=== PATIENT | female | born 1945 | race Caucasian/White ===

== ENCOUNTER 2021-05-28 19:41 | Inpatient (IN) | payer MEDICARE, BC ==
[~2021-05-28] VITALS: Ht 157.5 cm; Wt 69.4 kg
[2021-05-28 20:00] VITALS: BP 128/59
--- NOTE | 2021-05-28 20:00 | NUR ---
GPS-FURNACE HELPER NOTES: ADMITTED THIS 76 Y/O, FEMALE, FROM [facility]. ADMITTED ON 5150 FOR GD. PER HOLD, PATIENT IS HAVING WORSENING PARANOIA, CONFUSION, PHYSICAL AGGRESSION AND AUDITORY AND VISUAL HALLUCINATIONS. SHE IS NOT EATING AND CANNOT VERBALIZE A VISIBLE PLAN OF SELF CARE AT THIS TIME. UPON FACE TO FACE ASSESSMENT, PATIENT IS A/OX1, CONFUSED, DISORIENTED, YELLING INTERMITTENTLY, COOPERATIVE. REORIENTATION PROVIDED. PT WAS ADVISED OF HER HOLD. PATIENT IS UNDER THE PSYCH CARE OF DR. SCHROEDER AND THE MEDICAL CARE OF DR. MIRANDA. PT HANDBOOK GIVEN WITH PATIENT'S RIGHTS AND GUIDE TO PRESCRIPTIONS. PT BELONGINGS WERE INVENTORIED AND CHECKED FOR CONTRABAND. SKIN ASSESSMENT DONE. SAFETY PRECAUTIONS IN PLACE. WILL CONTINUE TO MONITOR Q15MIN ROUNDS FOR SAFETY AND BEHAVIOR.
--- NOTE | 2021-05-28 20:30 | NUR ---
RN-NOTES DR. SCHROEDER (PSYCHIATRIST) MADE AWARE OF PATIENT ADMISSION WITH STANDING ORDERS.NOTED AND CARRIED OUT,ALSO DR. MIRANDA (B2B OUTSIDE SALES REPRESENTATIVE) WAS MADE AWARE. PATIENT'S SPOUSE THEODORE PERES [phone] WAS MADE AWARE .
[2021-05-28] MEDS ORDERED: ATOR40TA PO (20:40)
[2021-05-28] MEDS ORDERED: POLY17PO4 PO (20:40)
[2021-05-28] MEDS ORDERED: PANT40TA49 PO (20:40)
[2021-05-28] MEDS ORDERED: LOSA50TA39 PO (20:40)
[2021-05-28] MEDS ORDERED: ENOX40DI SUBCUT (20:40)
[2021-05-28] MEDS ORDERED: OLAN5TAB3 PO ×2 (20:40)
[2021-05-28] MEDS ORDERED: ASPI-1169 PO (20:40)
[2021-05-28] MEDS ORDERED: ACET-3117 PO (20:40)
[2021-05-28] MEDS ORDERED: LORA-259 PO (20:40)
[2021-05-28] MEDS ORDERED: MIRT-90 PO (20:40)
[2021-05-28] MEDS ORDERED: OLANZAPINE IM (20:40)
[2021-05-28] MEDS ORDERED: DONE10TA44 PO (20:40)
[2021-05-28] MEDS ORDERED: TRAZ-182 PO (20:40)
[2021-05-28] MEDS ORDERED: SENN-18 PO (20:40)
[2021-05-28] MEDS ORDERED: FOLIC ACID PO (20:40)
[2021-05-28] MEDS ORDERED: MAG HYDROX/AL HYDROX/SIMETH 30 ML UDC PO PRN (21:00)
[2021-05-28] MEDS ORDERED: BLOOD SUGAR DIAGNOSTIC 1 EACH STRIP IN ONE (21:00)
[2021-05-28] MEDS ORDERED: MAGNESIUM HYDROXIDE 30 ML UDC PO PRN (21:00)
--- NOTE | 2021-05-28 21:00 | NUR ---
GPS-RN NOTES: DR. MIRANDA NOTIFIED REGARDING PT'S ADMISSION AND MEDICATIONS NEEDS TO BE RECONCILED.
[2021-05-28] MEDS: LORAZEPAM 0.5 MG TABLET PO PRN (23:26)
--- NOTE | 2021-05-28 23:26 | NUR ---
GPS-RN NOTES: PATIENT IS ANXIOUS AND RESTLESS. ADMINISTERED ATIVAN 0.5MG PO ORDERED BUT PATIENT SPIT OUT MEDICATION. PATIENT REMAINS CONFUSED. WILL CONTINUE TO MONITOR FOR SAFETY.
[2021-05-29] MEDS: TEMAZEPAM 7.5 MG CAPSULE PO PRN ×2 (00:32→23:31)
--- NOTE | 2021-05-29 00:32 | NUR ---
GPS-RN NOTES: INSOMNIA PATIENT IS UNABLE TO SLEEP. PRN RESTORIL 7.5MG PO GIVEN ORDERED. WILL CONTINUE TO MONITOR.
[2021-05-29 08:00] VITALS: BP 131/65
[2021-05-29 08:41] LABS: CHOLESTEROL 150 mg/dL (<200); HDL CHOLESTEROL 50 mg/dL (40-60); LDL 74 mg/dL (0-99); TRIGLYCERIDES 81 mg/dL (30-150)
[2021-05-29 08:42] LABS: ALBUMIN 3.8 g/dL (3.4-5.0); BILIRUBIN,TOTAL 0.6 mg/dL (0.2-1.0); CALCIUM, SERUM 9.2 mg/dL (8.5-10.1); POTASSIUM 4.2 mmol/L (3.5-5.1); TOTAL PROTEIN, SERUM 7.3 g/dL (6.4-8.2)
[2021-05-29] MEDS ORDERED: HOME MED MISCELLANEOUS XX SCH (10:00)
[2021-05-29 10:14] LABS: BASOPHILS # (AUTO) 0.2 K/uL (0.0-0.2); BASOPHILS % (AUTO) 1.3 % (0.0-2.0); EOSINOPHILS % (AUTO) 0.6 % (0.0-6.0); HEMATOCRIT 33 % (33-45); HEMOGLOBIN 10.9 g/dL (11.5-14.8); LYMPHOCYTES # (AUTO) 1.9 K/uL (0.8-4.8); LYMPHOCYTES % (AUTO) 12.6 % (20.0-44.0); MEAN CORPUSCULAR HGB CONC 34 g/dl (31.0-36.0); MEAN CORPUSCULAR VOLUME 90 fL (82-100); MONOCYTES # (AUTO) 1.3 K/uL (0.1-1.30); MONOCYTES % (AUTO) 8.6 % (2.0-12.0); NEUTROPHILS # (AUTO) 11.5 K/uL (1.8-8.9); NEUTROPHILS % (AUTO) 76.9 % (43.0-81.0); PLATELET COUNT (AUTO) 540 K/uL (150-450); RED BLOOD CELL COUNT(AUTO) 3.62 MIL/uL (4.0-5.2)
[2021-05-29] MEDS: ENOXAPARIN SODIUM 40 MG/0.4 ML DISP.SYRIN SQ SCH (10:30)
[2021-05-29] MEDS: LORAZEPAM 0.5 MG TABLET PO PRN (10:31)
--- NOTE | 2021-05-29 11:51 | NUR ---
gps administrative sales assistant: notes pt refused lovenox, pt gets easily agitated. reality orientation provided prn. will continue to monitor.
--- NOTE | 2021-05-29 15:44 | NUR ---
INITIAL ASSESSMENT: Social Service initial assessment completed today.
[2021-05-29 16:00] VITALS: BP 123/58
[2021-05-29] MEDS: OLANZAPINE 5 MG TABLET PO SCH (16:14)
[2021-05-29] MEDS: DIVALPROEX SODIUM 125 MG CAP.SPRINK PO SCH (16:14)
[2021-05-29 19:57] VITALS: BP 121/52
[2021-05-29 20:25] VITALS: BP 121/52
[2021-05-29] MEDS: SENNOSIDES 8.6 MG TABLET PO SCH (21:54)
[2021-05-29] MEDS: DONEPEZIL 5 MG TABLET PO SCH (21:54)
[2021-05-29] MEDS: MIRTAZAPINE 15 MG TABLET PO SCH (21:54)
--- NOTE | 2021-05-29 23:34 | NUR ---
RN NOTE: INSOMNIA PATIENT IS UNABLE TO SLEEP, PRN RESTORIL 7.5 MG 1 CAP PO ADMINISTERED. WILL CONTINUE TO MONITOR.
--- NOTE | 2021-05-29 23:35 | NUR ---
RN NOTE PATIENT WAS ASSISTED TO BED BUT PATIENT REFUSED TO STAY IN BED & GOT OUT OF BED, UNSTEADY & UNCOOPERATIVE AT THIS TIME. FALL RISK, ASSISTED PATIENT TO VICTOR M CHAIR FOR SAFETY. WILL CONTINUE TO MONITOR.
[2021-05-30] MEDS: LORAZEPAM 0.5 MG TABLET PO PRN ×3 (04:45→21:05)
--- NOTE | 2021-05-30 04:46 | NUR ---
RN NOTE: ANXIETY PATIENT IS VERY ANXIOUS, LOUD, RESTLESS, YELLING, PARANOID. PRN ATIVAN 0.5 MG 1 TAB PO ADMINISTERED. WILL CONTINUE TO MONITOR.
--- NOTE | 2021-05-30 05:57 | NUR ---
RN NOTE URINE SPECIMEN COLLECTED BY RESPIRATORY PHYSICIAN.
[2021-05-30 08:00] VITALS: BP 111/85
[2021-05-30 08:18] LABS: BILIRUBIN,URINE NEGATIVE (NEGATIVE); COLOR,URINE YELLOW (YELLOW); LEUKOCYTE ESTERASE ,URINE SMALL (NEGATIVE); NITRITE, URINE POSITIVE (NEGATIVE); PROTEIN,URINE NEGATIVE (NEGATIVE); UGLUCOSE NEGATIVE (NEGATIVE); UROBILINOGEN,URINE 0.2 EU/dL (0.2)
[2021-05-30] MEDS: DIVALPROEX SODIUM 125 MG CAP.SPRINK PO SCH ×3 (08:19→16:21)
[2021-05-30] MEDS: ASPIRIN 81 MG TAB.CHEW PO SCH (08:19)
[2021-05-30] MEDS: ATORVASTATIN 40 MG TABLET PO SCH (08:20)
[2021-05-30] MEDS: OLANZAPINE 5 MG TABLET PO SCH ×2 (08:20→16:21)
[2021-05-30] MEDS: LOSARTAN POTASSIUM 50 MG TABLET PO SCH (08:20)
[2021-05-30] MEDS: FOLIC ACID 1 MG TABLET PO SCH (08:20)
[2021-05-30] MEDS: PANTOPRAZOLE 40 MG TABLET.DR PO SCH (08:20)
[2021-05-30 08:26] LABS: BACTERIA,URINE Few /HPF (None Seen); RBC,URINE NONE SEEN /HPF (0-2); SQUAMOUS EPITHELIAL CELL,UR Few /HPF (None Seen); URINE AMORPHOUS URATE Many /HPF (None Seen)
[2021-05-30] MEDS: ENOXAPARIN SODIUM 40 MG/0.4 ML DISP.SYRIN SQ SCH (09:18)
--- NOTE | 2021-05-30 13:04 | NUR ---
RN-CO: ATIVAN GIVEN FOR RESTLESSNESS.
[2021-05-30] MEDS: LEVOFLOXACIN (250MG) 250 MG TABLET PO SCH (15:11)
[2021-05-30 16:00] VITALS: BP 132/58
[2021-05-30 20:25] VITALS: BP 105/42
[2021-05-30 21:00] VITALS: BP 108/55
--- NOTE | 2021-05-30 21:13 | NUR ---
RN NOTE: ANXIETY PATIENT IS NOTED TO BE VERY ANXIOUS, AGITATED, LOUD, HYPERVERBAL, RESTLESS, BANGING ON VICTOR M CHAIR. PRN ATIVAN 0.5 MG 1 TAB PO ADMINISTERED.
[2021-05-30] MEDS: MIRTAZAPINE 15 MG TABLET PO SCH (22:05)
[2021-05-30] MEDS: DONEPEZIL 5 MG TABLET PO SCH (22:05)
[2021-05-30] MEDS: SENNOSIDES 8.6 MG TABLET PO SCH (22:05)
[2021-05-31] MEDS: TEMAZEPAM 7.5 MG CAPSULE PO PRN (00:27)
--- NOTE | 2021-05-31 00:29 | NUR ---
RN NOTE: INSOMNIA PATIENT IS UNABLE TO SLEEP, ANXIOUS, AGITATED. PRN RESTORIL 7.5 MG 1 CAP PO ADMINISTERED. WILL CONTINUE TO MONITOR.
[2021-05-31] MEDS: LORAZEPAM 0.5 MG TABLET PO PRN ×3 (04:57→19:52)
--- NOTE | 2021-05-31 04:59 | NUR ---
RN NOTE: ANXIETY PATIENT IS NOTED TO BE VERY ANXIOUS, RESTLESS, YELLING, SCREAMING, AGITATED, LOUD, HYPERVERBAL, RESTLESS, BANGING ON VICTOR M CHAIR. PRN ATIVAN 0.5 MG 1 TAB PO ADMINISTERED.
[2021-05-31] MEDS: ACETAMINOPHEN 325 MG TABLET PO PRN ×2 (05:31→21:18)
--- NOTE | 2021-05-31 05:32 | NUR ---
RN NOTE: PAIN PATIENT C/O BACK PAIN, UNABLE TO SCALE DUE TO CONFUSION, PRN TYLENOL 650 MG PO ADMINISTERED.
[2021-05-31 08:00] VITALS: BP 115/80
[2021-05-31] MEDS: ENOXAPARIN SODIUM 40 MG/0.4 ML DISP.SYRIN SQ SCH (08:27)
[2021-05-31] MEDS: FOLIC ACID 1 MG TABLET PO SCH (08:28)
[2021-05-31] MEDS: DIVALPROEX SODIUM 125 MG CAP.SPRINK PO SCH ×3 (08:28→16:45)
[2021-05-31] MEDS: PANTOPRAZOLE 40 MG TABLET.DR PO SCH (08:28)
[2021-05-31] MEDS: OLANZAPINE 5 MG TABLET PO SCH ×2 (08:28→16:46)
[2021-05-31] MEDS: ATORVASTATIN 40 MG TABLET PO SCH (08:28)
[2021-05-31] MEDS: ASPIRIN 81 MG TAB.CHEW PO SCH (08:28)
[2021-05-31] MEDS: LOSARTAN POTASSIUM 50 MG TABLET PO SCH (08:30)
--- NOTE | 2021-05-31 09:25 | NUR ---
GPS RN NOTE: NOTED ON HER LEFT HAND ABRASION NP. DANGELO NOTIFIED WOUND CONSULT ORDERED
--- NOTE | 2021-05-31 13:05 | NUR ---
RN NOTE: ANXIETY PATIENT VERY ANXIOUS, RESTLESS, YELLING, PRN ATIVAN 0.5 MG 1 TAB PO ADMINISTERED.
[2021-05-31] MEDS: LEVOFLOXACIN (250MG) 250 MG TABLET PO SCH (14:51)
[2021-05-31 16:00] VITALS: BP 115/81
--- NOTE | 2021-05-31 19:53 | NUR ---
RN NOTE: ANXIETY PATIENT IS NOTED TO BE VERY ANXIOUS, AGITATED, LOUD, HYPERVERBAL, RESTLESS, PRN ATIVAN 0.5 MG 1 TAB PO ADMINISTERED. VITALS WNL. WILL CONTINUE TO MONITOR.
[2021-05-31 20:00] VITALS: BP 130/80
[2021-05-31 20:06] VITALS: BP 130/80
--- NOTE | 2021-05-31 21:19 | NUR ---
RN NOTE: PAIN PATIENT C/O GENERALIZED BODY PAIN, UNABLE TO SCALE DUE TO CONFUSION, PRN TYLENOL 650 MG PO ADMINISTERED. WILL CONTINUE TO MONITOR.
[2021-05-31] MEDS: MIRTAZAPINE 15 MG TABLET PO SCH (22:04)
[2021-05-31] MEDS: SENNOSIDES 8.6 MG TABLET PO SCH (22:04)
[2021-05-31] MEDS: DONEPEZIL 5 MG TABLET PO SCH (22:04)
[2021-06-01] MEDS: TEMAZEPAM 7.5 MG CAPSULE PO PRN ×2 (01:56→21:45)
--- NOTE | 2021-06-01 01:58 | NUR ---
RN NOTE: INSOMNIA PATIENT IS UNABLE TO SLEEP, ANXIOUS, AGITATED. PRN RESTORIL 7.5 MG 1 CAP PO ADMINISTERED. WILL CONTINUE TO MONITOR.
[2021-06-01] MEDS: Z GUARD REMEDY 4 OZ OINT TP PRN (03:10)
--- NOTE | 2021-06-01 06:53 | NUR ---
RN NOTE PATIENT IS SLEEPING IN BED AT THIS TIME.
[2021-06-01 08:00] VITALS: BP 115/57
[2021-06-01] MEDS: DIVALPROEX SODIUM 125 MG CAP.SPRINK PO SCH ×3 (08:59→16:06)
[2021-06-01] MEDS: OLANZAPINE 5 MG TABLET PO SCH ×2 (08:59→16:06)
[2021-06-01] MEDS: PANTOPRAZOLE 40 MG TABLET.DR PO SCH (08:59)
[2021-06-01] MEDS: LOSARTAN POTASSIUM 50 MG TABLET PO SCH (09:00)
[2021-06-01] MEDS: ASPIRIN 81 MG TAB.CHEW PO SCH (09:00)
[2021-06-01] MEDS: ENOXAPARIN SODIUM 40 MG/0.4 ML DISP.SYRIN SQ SCH (09:00)
[2021-06-01] MEDS: ATORVASTATIN 40 MG TABLET PO SCH (09:00)
[2021-06-01] MEDS: FOLIC ACID 1 MG TABLET PO SCH (09:00)
[2021-06-01] MEDS: Z GUARD REMEDY 2 OZ OINT TP SCH (09:01)
[2021-06-01] MEDS: ACETAMINOPHEN 325 MG TABLET PO PRN ×2 (12:04→20:36)
[2021-06-01] MEDS: LEVOFLOXACIN (250MG) 250 MG TABLET PO SCH (14:29)
[2021-06-01 16:00] VITALS: BP 138/96
[2021-06-01 20:00] VITALS: BP 136/69
--- NOTE | 2021-06-01 20:37 | NUR ---
RN NOTES PT COMPLAINED OF LOWERBACK PAIN; PRN MEDICATION GIVEN .
[2021-06-01] MEDS: MIRTAZAPINE 15 MG TABLET PO SCH (21:19)
[2021-06-01] MEDS: DONEPEZIL 5 MG TABLET PO SCH (21:20)
[2021-06-01] MEDS: SENNOSIDES 8.6 MG TABLET PO SCH (21:20)
--- NOTE | 2021-06-01 21:45 | NUR ---
GPS-RN NOTES: INSOMNIA PATIENT C/O UNABLE TO SLEEP. PRN RESTORIL 7.5MG PO GIVEN ORDERED. WILL CONTINUE TO MONITOR.
[2021-06-02] MEDS: LORAZEPAM 0.5 MG TABLET PO PRN ×3 (00:13→16:07)
--- NOTE | 2021-06-02 00:13 | NUR ---
GPS NOTE - Anxiety Patient is anxious and restless. Patient wanted to get out of bed. PRN Ativan 0.5 mg given. Will continue to monitor for patient safety.
[2021-06-02 08:00] VITALS: BP 140/69
[2021-06-02] MEDS: ENOXAPARIN SODIUM 40 MG/0.4 ML DISP.SYRIN SQ SCH (08:05)
[2021-06-02] MEDS: LOSARTAN POTASSIUM 50 MG TABLET PO SCH (08:06)
[2021-06-02] MEDS: ASPIRIN 81 MG TAB.CHEW PO SCH (08:06)
[2021-06-02] MEDS: OLANZAPINE 5 MG TABLET PO SCH ×2 (08:06→16:07)
[2021-06-02] MEDS: ACETAMINOPHEN 325 MG TABLET PO PRN ×2 (08:06→21:40)
[2021-06-02] MEDS: PANTOPRAZOLE 40 MG TABLET.DR PO SCH (08:06)
--- NOTE | 2021-06-02 08:06 | NUR ---
RN NOTE: ANXIETY PT EXHIBITING INCREASED ANXIETY. YELLING OUT FOR THEODORE. PT IS CONFUSED AND DISORIENTED. GOING INTO OTHER PATIENT'S ROOMS. MEDICATEED WITH ATIVAN PO PRN. WILL CONT TO MONITOR EFFECTIVENESS OF PRN M EDICATIONS
[2021-06-02] MEDS: Z GUARD REMEDY 2 OZ OINT TP SCH (08:07)
[2021-06-02] MEDS: ATORVASTATIN 40 MG TABLET PO SCH (08:07)
[2021-06-02] MEDS: FOLIC ACID 1 MG TABLET PO SCH (08:07)
[2021-06-02] MEDS: DIVALPROEX SODIUM 125 MG CAP.SPRINK PO SCH ×2 (09:23→16:07)
--- NOTE | 2021-06-02 10:34 | NUR ---
SNF Referral: GUERO faxed clinicals to [facility] [phone] [place] [address]] for SNF placement. Addendum: 06/02/21 at 1037 by ALHAJI JACK
--- NOTE | 2021-06-02 10:49 | NUR ---
SNF Referral: GUERO faxed clinicals to [facility] [[address] [place] [address] TEL: FAX: [phone]] for SNF placement.
--- NOTE | 2021-06-02 11:18 | NUR ---
WOUND CARE CONSULT: PT PRESENTS WITH SKIN IRRITATION TO INNER BUTTOCKS. RECOMMENDATIONS MADE FOR SKIN CARE AND PROTECTION. DISCUSSED WITH NURSING STAFF. IN AGREEMENT WITH PLAN OF CARE. Addendum: 06/02/21 at 1119 by RACHELLE COSBY WNDNU Amended: Links added.
[2021-06-02] MEDS: LEVOFLOXACIN (250MG) 250 MG TABLET PO SCH (13:18)
[2021-06-02 16:00] VITALS: BP 138/57
--- NOTE | 2021-06-02 16:08 | NUR ---
RN NOTE: ANXIETY PT YELLING, "HELP, HELP". UNABLE TO BE REORIENTED AND REASSURED. MEDICATED WITH ATIVn 0.5 MG PO PRN.
--- NOTE | 2021-06-02 19:00 | NUR ---
start of my shift received Jarrod PERES ambulating in the corridor flat affect on her face aimlessly ambulating. Ambulated her to her room but first to the bathroom. She is cooperative and follows directions with assist. Noted med swallowed w/o problems if crushed and given with applesauce asp precautions. Her called he is very concerned about her and requested the MD Smith call him anytime : THEODORE JA [phone] will leave a note on the MD'S message board and tell charge nurse
[2021-06-02 20:00] VITALS: BP 123/66
[2021-06-02] MEDS: DONEPEZIL 5 MG TABLET PO SCH (21:38)
[2021-06-02] MEDS: MIRTAZAPINE 15 MG TABLET PO SCH (21:39)
[2021-06-02] MEDS: SENNOSIDES 8.6 MG TABLET PO SCH (21:40)
[2021-06-02] MEDS: TEMAZEPAM 7.5 MG CAPSULE PO PRN (21:41)
--- NOTE | 2021-06-03 04:36 | NUR ---
noted asleep since 10 pm skin warm and dry. resp even and unlabored. appears comfortable was up once to go to the bathroom assisted tot he bathroom bed alarm on for safety
[2021-06-03 08:00] VITALS: BP 101/52
[2021-06-03] MEDS: FOLIC ACID 1 MG TABLET PO SCH (08:31)
[2021-06-03] MEDS: ASPIRIN 81 MG TAB.CHEW PO SCH (08:31)
[2021-06-03] MEDS: PANTOPRAZOLE 40 MG TABLET.DR PO SCH (08:31)
[2021-06-03] MEDS: OLANZAPINE 5 MG TABLET PO SCH ×2 (08:31→16:45)
[2021-06-03] MEDS: LOSARTAN POTASSIUM 50 MG TABLET PO SCH (08:32)
[2021-06-03] MEDS: DIVALPROEX SODIUM 125 MG CAP.SPRINK PO SCH ×2 (08:33→16:45)
[2021-06-03] MEDS: ENOXAPARIN SODIUM 40 MG/0.4 ML DISP.SYRIN SQ SCH (08:34)
[2021-06-03] MEDS: ATORVASTATIN 40 MG TABLET PO SCH (08:35)
[2021-06-03] MEDS: ACETAMINOPHEN 325 MG TABLET PO PRN (09:35)
[2021-06-03] MEDS: Z GUARD REMEDY 2 OZ OINT TP SCH (09:41)
[2021-06-03] MEDS: LEVOFLOXACIN (250MG) 250 MG TABLET PO SCH (14:08)
[2021-06-03 16:00] VITALS: BP 133/69
[2021-06-03 19:55] VITALS: BP 115/65
[2021-06-03] MEDS: SENNOSIDES 8.6 MG TABLET PO SCH (21:33)
[2021-06-03] MEDS: DONEPEZIL 5 MG TABLET PO SCH (21:34)
[2021-06-03] MEDS: MIRTAZAPINE 15 MG TABLET PO SCH (21:34)
[2021-06-03] MEDS: TEMAZEPAM 7.5 MG CAPSULE PO PRN (21:34)
[2021-06-04 08:00] VITALS: BP 141/68
[2021-06-04] MEDS: ASPIRIN 81 MG TAB.CHEW PO SCH (08:38)
[2021-06-04] MEDS: ATORVASTATIN 40 MG TABLET PO SCH (08:38)
[2021-06-04] MEDS: DIVALPROEX SODIUM 125 MG CAP.SPRINK PO SCH ×2 (08:38→16:36)
[2021-06-04] MEDS: FOLIC ACID 1 MG TABLET PO SCH (08:39)
[2021-06-04] MEDS: PANTOPRAZOLE 40 MG TABLET.DR PO SCH (08:39)
[2021-06-04] MEDS: OLANZAPINE 5 MG TABLET PO SCH ×2 (08:39→16:36)
[2021-06-04] MEDS: ENOXAPARIN SODIUM 40 MG/0.4 ML DISP.SYRIN SQ SCH (08:42)
[2021-06-04] MEDS: LOSARTAN POTASSIUM 50 MG TABLET PO SCH (08:43)
[2021-06-04] MEDS: Z GUARD REMEDY 2 OZ OINT TP SCH (09:28)
--- NOTE | 2021-06-04 09:50 | NUR ---
D/C Planning: GUERO called [facility] [[address] [place] [address] TEL: FAX: [phone]] and spoke to admissions dept. who stated that they will review the clinicals and get back to SW.
--- NOTE | 2021-06-04 09:55 | NUR ---
D/C planning: GUERO faxed clinicals to [facility] [ [address] [place] [address]] and left voicemail to admissions department requested update of referral. Addendum: 06/04/21 at [address]I JACK [facility]
--- NOTE | 2021-06-04 10:10 | NUR ---
SNF Referral: GUERO faxed clinicals to [facility] FAX:[phone] TEL:[phone]
--- NOTE | 2021-06-04 11:07 | NUR ---
Social Work Family Contact Spoke with patient's who said he was upset as he had not had any contact from Dr Smith. Spoke with Dr Smith who agreed to call patient's . wanted information regarding patient's condition and to discuss a realistic discharge plan.
--- NOTE | 2021-06-04 11:44 | NUR ---
D/C Planning: SW received call from Alan at [facility] [[address] [address] TEL: FAX: [phone]] statign they cannot accept this pt. as they feel she needs higher level of care. Noted.
--- NOTE | 2021-06-04 13:05 | NUR ---
Probable cause hearing: Pt.'s 5250 hold was upheld on the grounds of Gravely Disabled.
[2021-06-04 16:00] VITALS: BP_SYST 132; BP_SYST 137; BP_DIAS 67; BP_DIAS 69
--- NOTE | 2021-06-04 19:43 | NUR ---
RN OPENING NOTES: RECEIVED PATIENT AWAKE IN BED, AMBULATORY, NO COMPLAIN OF PAIN AND DISCOMFORT AT THIS TIME, NO CHANGES IN BEHAVIOR OR ANY AGITATION OBSERVED, PATIENT KEPT CLEAN AND DRY, BED IN LOW POSITION, WILL CONTINUE TO MONITOR.
[2021-06-04 20:37] VITALS: BP 120/68
[2021-06-04] MEDS: MIRTAZAPINE 15 MG TABLET PO SCH (21:57)
[2021-06-04] MEDS: DONEPEZIL 5 MG TABLET PO SCH (21:57)
[2021-06-04] MEDS: SENNOSIDES 8.6 MG TABLET PO SCH (21:57)
[2021-06-05] MEDS: TEMAZEPAM 7.5 MG CAPSULE PO PRN (00:37)
[2021-06-05] MEDS: ACETAMINOPHEN 325 MG TABLET PO PRN (01:28)
[2021-06-05] MEDS: LORAZEPAM 0.5 MG TABLET PO PRN (02:56)
[2021-06-05 07:47] LABS: BASOPHILS # (AUTO) 0.1 K/uL (0.0-0.2); BASOPHILS % (AUTO) 0.6 % (0.0-2.0); EOSINOPHILS % (AUTO) 0.5 % (0.0-6.0); HEMATOCRIT 32 % (33-45); HEMOGLOBIN 10.5 g/dL (11.5-14.8); LYMPHOCYTES % (AUTO) 6.7 % (20.0-44.0); MEAN CORPUSCULAR HGB CONC 33 g/dl (31.0-36.0); MEAN CORPUSCULAR VOLUME 90 fL (82-100); MONOCYTES # (AUTO) 1.6 K/uL (0.1-1.30); MONOCYTES % (AUTO) 10.3 % (2.0-12.0); NEUTROPHILS # (AUTO) 12.7 K/uL (1.8-8.9); NEUTROPHILS % (AUTO) 81.9 % (43.0-81.0); PLATELET COUNT (AUTO) 523 K/uL (150-450); RED BLOOD CELL COUNT(AUTO) 3.53 MIL/uL (4.0-5.2); WHITE BLOOD COUNT (AUTO) 15.6 K/uL (4.3-11.0)
[2021-06-05 08:00] VITALS: BP 121/78
[2021-06-05 08:02] LABS: CALCIUM, SERUM 9.1 mg/dL (8.5-10.1); CREATININE 0.9 mg/dL (0.6-1.3); POTASSIUM 3.7 mmol/L (3.5-5.1)
[2021-06-05] MEDS: ATORVASTATIN 40 MG TABLET PO SCH (09:03)
[2021-06-05] MEDS: PANTOPRAZOLE 40 MG TABLET.DR PO SCH (09:03)
[2021-06-05] MEDS: OLANZAPINE 5 MG TABLET PO SCH ×2 (09:03→16:09)
[2021-06-05] MEDS: FOLIC ACID 1 MG TABLET PO SCH (09:03)
[2021-06-05] MEDS: DIVALPROEX SODIUM 125 MG CAP.SPRINK PO SCH ×2 (09:03→16:09)
[2021-06-05] MEDS: Z GUARD REMEDY 2 OZ OINT TP SCH (09:03)
[2021-06-05] MEDS: LOSARTAN POTASSIUM 50 MG TABLET PO SCH (09:04)
[2021-06-05] MEDS: ASPIRIN 81 MG TAB.CHEW PO SCH (09:04)
[2021-06-05] MEDS: ENOXAPARIN SODIUM 40 MG/0.4 ML DISP.SYRIN SQ SCH (09:05)
[2021-06-05 16:00] VITALS: BP 118/60
[2021-06-05 20:52] VITALS: BP 101/55
[2021-06-05] MEDS: DONEPEZIL 5 MG TABLET PO SCH (21:28)
[2021-06-05] MEDS: MIRTAZAPINE 15 MG TABLET PO SCH (21:29)
[2021-06-05] MEDS: SENNOSIDES 8.6 MG TABLET PO SCH (21:29)
[2021-06-05 21:40] VITALS: BP 118/68
[2021-06-06 08:00] VITALS: BP 132/77
[2021-06-06] MEDS: OLANZAPINE 5 MG TABLET PO SCH ×2 (08:16→17:18)
[2021-06-06] MEDS: FOLIC ACID 1 MG TABLET PO SCH (08:16)
[2021-06-06] MEDS: ASPIRIN 81 MG TAB.CHEW PO SCH (08:16)
[2021-06-06] MEDS: ATORVASTATIN 40 MG TABLET PO SCH (08:16)
[2021-06-06] MEDS: PANTOPRAZOLE 40 MG TABLET.DR PO SCH (08:16)
[2021-06-06] MEDS: LOSARTAN POTASSIUM 50 MG TABLET PO SCH (08:16)
[2021-06-06] MEDS: DIVALPROEX SODIUM 125 MG CAP.SPRINK PO SCH ×2 (08:17→17:18)
[2021-06-06] MEDS: ENOXAPARIN SODIUM 40 MG/0.4 ML DISP.SYRIN SQ SCH (08:19)
[2021-06-06] MEDS: Z GUARD REMEDY 2 OZ OINT TP SCH (08:20)
--- NOTE | 2021-06-06 12:15 | NUR ---
GPS/RN PT REFUSED ACCUCHECK OFFERED X3
[2021-06-06 16:00] VITALS: BP 132/92
[2021-06-06 20:06] VITALS: BP 121/67
[2021-06-06] MEDS: SENNOSIDES 8.6 MG TABLET PO SCH (21:16)
[2021-06-06] MEDS: MIRTAZAPINE 15 MG TABLET PO SCH (21:17)
[2021-06-06] MEDS: DONEPEZIL 5 MG TABLET PO SCH (21:17)
[2021-06-06] MEDS: Z GUARD REMEDY 4 OZ OINT TP PRN (21:20)
[2021-06-07] MEDS: LORAZEPAM 0.5 MG TABLET PO PRN (02:27)
--- NOTE | 2021-06-07 02:27 | NUR ---
RN NOTES : ANXIETY PT. NOTED VERY ANXIOUS RESTLESS, PARANOID, NON REDIIRECTABLE ATIVAN 0.5 MG PO PRN GIVEN PER PT. REQUEST , WILL CONTINUE TO MONITOR.
[2021-06-07 08:00] VITALS: BP 114/53
[2021-06-07 08:41] LABS: BASOPHILS # (AUTO) 0.1 K/uL (0.0-0.2); BASOPHILS % (AUTO) 0.8 % (0.0-2.0); EOSINOPHILS % (AUTO) 0.2 % (0.0-6.0); HEMATOCRIT 30 % (33-45); HEMOGLOBIN 9.9 g/dL (11.5-14.8); LYMPHOCYTES # (AUTO) 0.8 K/uL (0.8-4.8); LYMPHOCYTES % (AUTO) 6.5 % (20.0-44.0); MEAN CORPUSCULAR HGB CONC 33 g/dl (31.0-36.0); MEAN CORPUSCULAR VOLUME 89 fL (82-100); MONOCYTES # (AUTO) 1.2 K/uL (0.1-1.30); MONOCYTES % (AUTO) 9.3 % (2.0-12.0); NEUTROPHILS # (AUTO) 10.7 K/uL (1.8-8.9); NEUTROPHILS % (AUTO) 83.2 % (43.0-81.0); PLATELET COUNT (AUTO) 389 K/uL (150-450); RED BLOOD CELL COUNT(AUTO) 3.37 MIL/uL (4.0-5.2); WHITE BLOOD COUNT (AUTO) 12.9 K/uL (4.3-11.0)
[2021-06-07 08:57] LABS: CREATININE 0.6 mg/dL (0.6-1.3); PHOSPHORUS 2.9 mg/dL (2.5-4.9); POTASSIUM 3.4 mmol/L (3.5-5.1)
[2021-06-07] MEDS: Z GUARD REMEDY 2 OZ OINT TP SCH (09:43)
[2021-06-07] MEDS: ASPIRIN 81 MG TAB.CHEW PO SCH (09:46)
[2021-06-07] MEDS: OLANZAPINE 5 MG TABLET PO SCH ×2 (09:46→16:30)
[2021-06-07] MEDS: ATORVASTATIN 40 MG TABLET PO SCH (09:46)
[2021-06-07] MEDS: FOLIC ACID 1 MG TABLET PO SCH (09:46)
[2021-06-07] MEDS: PANTOPRAZOLE 40 MG TABLET.DR PO SCH (09:46)
[2021-06-07] MEDS: LOSARTAN POTASSIUM 50 MG TABLET PO SCH (09:46)
[2021-06-07] MEDS: DIVALPROEX SODIUM 125 MG CAP.SPRINK PO SCH ×2 (09:46→16:30)
[2021-06-07] MEDS: ENOXAPARIN SODIUM 40 MG/0.4 ML DISP.SYRIN SQ SCH (09:48)
[2021-06-07] MEDS ORDERED: POTASSIUM CHLORIDE 20 MEQ TAB.PRT.SR PO ONE (11:30)
[2021-06-07 16:00] VITALS: BP 115/50
[2021-06-07 20:00] VITALS: BP 134/74
[2021-06-07] MEDS: DONEPEZIL 5 MG TABLET PO SCH (21:47)
[2021-06-07] MEDS: SENNOSIDES 8.6 MG TABLET PO SCH (21:47)
[2021-06-07] MEDS: MIRTAZAPINE 15 MG TABLET PO SCH (21:47)
[2021-06-07] MEDS: TEMAZEPAM 7.5 MG CAPSULE PO PRN (22:18)
--- NOTE | 2021-06-07 22:20 | NUR ---
GPS RN NOTES: PATIENT REQUESTED SLEEP MEDICATION. RESTORIL 7.5MG GIVEN PO PRN ORDERED AT 2218. WILL CONTINUE TO MONITOR.
--- NOTE | 2021-06-08 05:30 | NUR ---
GPS RN NOTES: PATIENT WEEKLY SKIN ASSESSMENT.
--- NOTE | 2021-06-08 06:35 | NUR ---
GPS RN NOTES: URINE SAMPLE COLLECTED AND SENT TO LAB FOR UA ORDERED.
--- NOTE | 2021-06-08 06:58 | NUR ---
GPS RN CLOSING NOTES: PATIENT IS SITTING IN HALLWAY, AWAKE, A/O X1. PATIENT SLEPT 2HRS THIS SHIFT. PATIENT HAS NO S/S OF DISTRESS. RESPIRATION EVEN AND UNLABORED WITH EQUAL RISE AND FALL OF THE CHEST, ON ROOM AIR. ALL PATIENT CARE NEEDS HAVE BEEN MET ANTICIPATED. WILL CONTINUE TO MONITOR AND ENDORSE TO AM SHIFT.
[2021-06-08 07:34] LABS: BILIRUBIN,URINE SMALL (NEGATIVE); COLOR,URINE YELLOW (YELLOW); LEUKOCYTE ESTERASE ,URINE NEGATIVE (NEGATIVE); NITRITE, URINE NEGATIVE (NEGATIVE); PROTEIN,URINE TRACE mg/dl (NEGATIVE); UGLUCOSE NEGATIVE (NEGATIVE)
[2021-06-08 07:36] LABS: BASOPHILS # (AUTO) 0.1 K/uL (0.0-0.2); BASOPHILS % (AUTO) 0.8 % (0.0-2.0); EOSINOPHILS % (AUTO) 0.3 % (0.0-6.0); HEMATOCRIT 32 % (33-45); HEMOGLOBIN 10.2 g/dL (11.5-14.8); LYMPHOCYTES # (AUTO) 1.4 K/uL (0.8-4.8); LYMPHOCYTES % (AUTO) 10.9 % (20.0-44.0); MEAN CORPUSCULAR HGB CONC 32 g/dl (31.0-36.0); MEAN CORPUSCULAR VOLUME 90 fL (82-100); MONOCYTES # (AUTO) 1.3 K/uL (0.1-1.30); MONOCYTES % (AUTO) 10.1 % (2.0-12.0); NEUTROPHILS # (AUTO) 9.9 K/uL (1.8-8.9); NEUTROPHILS % (AUTO) 77.9 % (43.0-81.0); PLATELET COUNT (AUTO) 452 K/uL (150-450); RED BLOOD CELL COUNT(AUTO) 3.62 MIL/uL (4.0-5.2); WHITE BLOOD COUNT (AUTO) 12.7 K/uL (4.3-11.0)
[2021-06-08 07:42] LABS: CALCIUM, SERUM 9.6 mg/dL (8.5-10.1); CREATININE 0.8 mg/dL (0.6-1.3); PHOSPHORUS 2.9 mg/dL (2.5-4.9); POTASSIUM 3.6 mmol/L (3.5-5.1)
[2021-06-08 08:15] VITALS: BP 102/50
[2021-06-08] MEDS: Z GUARD REMEDY 2 OZ OINT TP SCH (08:21)
[2021-06-08] MEDS: ATORVASTATIN 40 MG TABLET PO SCH (08:22)
[2021-06-08] MEDS: LOSARTAN POTASSIUM 50 MG TABLET PO SCH (08:22)
[2021-06-08] MEDS: DIVALPROEX SODIUM 125 MG CAP.SPRINK PO SCH ×2 (08:22→16:05)
[2021-06-08] MEDS: OLANZAPINE 5 MG TABLET PO SCH ×2 (08:22→16:05)
[2021-06-08] MEDS: ENOXAPARIN SODIUM 40 MG/0.4 ML DISP.SYRIN SQ SCH (08:22)
[2021-06-08] MEDS: PANTOPRAZOLE 40 MG TABLET.DR PO SCH (08:22)
[2021-06-08] MEDS: FOLIC ACID 1 MG TABLET PO SCH (08:22)
[2021-06-08] MEDS: ASPIRIN 81 MG TAB.CHEW PO SCH (08:22)
[2021-06-08 08:29] LABS: BACTERIA,URINE Few /HPF (None Seen); RBC,URINE 0-2 /HPF (0-2); SQUAMOUS EPITHELIAL CELL,UR Few /HPF (None Seen); URINE AMORPHOUS URATE Many /HPF (None Seen); WBC,URINE 0-2 /HPF (0-3)
[2021-06-08] MEDS: ENSURE ENLIVE 237 ML LIQUID (VANILLA) PO SCH (15:36)
[2021-06-08 16:23] VITALS: BP 106/62
[2021-06-08 20:00] VITALS: BP 142/78
[2021-06-08] MEDS: MIRTAZAPINE 15 MG TABLET PO SCH (21:46)
[2021-06-08] MEDS: DONEPEZIL 5 MG TABLET PO SCH (21:46)
[2021-06-08] MEDS: SENNOSIDES 8.6 MG TABLET PO SCH (21:47)
[2021-06-08] MEDS: TEMAZEPAM 7.5 MG CAPSULE PO PRN (21:50)
--- NOTE | 2021-06-09 05:08 | NUR ---
CLOSING NOTES: THE PATIENT WAS AWAKE THRU THE NIGHT. SAT IN THE VICTOR M CHAIR. CRUSHED HER PILLS AND GIVEN WITH APPLESAUCE W/O A PROBLEM. RESTORIL GIVEN NOT EFFECTIVE. HALLUCINATINING , GRABBING INTO AIR AND PLACING THEM ON HER TABLE. SHE IS TALKING IN A CALM SOFT TONED MANNER TO NO ONE BUT SOUNDS LIKE A BACK AND FORTH CONVERSATION
[2021-06-09 08:00] VITALS: BP 127/47
[2021-06-09] MEDS: LOSARTAN POTASSIUM 50 MG TABLET PO SCH (09:00)
[2021-06-09] MEDS: ENSURE ENLIVE 237 ML LIQUID (VANILLA) PO SCH ×2 (09:12→16:33)
[2021-06-09] MEDS: Z GUARD REMEDY 2 OZ OINT TP SCH (09:14)
[2021-06-09] MEDS: PANTOPRAZOLE 40 MG TABLET.DR PO SCH (09:19)
[2021-06-09] MEDS: ATORVASTATIN 40 MG TABLET PO SCH (09:19)
[2021-06-09] MEDS: ASPIRIN 81 MG TAB.CHEW PO SCH (09:19)
[2021-06-09] MEDS: FOLIC ACID 1 MG TABLET PO SCH (09:19)
[2021-06-09] MEDS: OLANZAPINE 5 MG TABLET PO SCH ×2 (09:19→16:40)
[2021-06-09] MEDS: DIVALPROEX SODIUM 125 MG CAP.SPRINK PO SCH ×2 (09:19→16:40)
[2021-06-09] MEDS: ENOXAPARIN SODIUM 40 MG/0.4 ML DISP.SYRIN SQ SCH (09:21)
[2021-06-09 16:00] VITALS: BP 145/68
[2021-06-09 20:00] VITALS: BP 123/92
[2021-06-09] MEDS: DONEPEZIL 5 MG TABLET PO SCH (21:37)
[2021-06-09] MEDS: SENNOSIDES 8.6 MG TABLET PO SCH (21:38)
[2021-06-09] MEDS: MIRTAZAPINE 15 MG TABLET PO SCH (21:38)
[2021-06-09] MEDS: TEMAZEPAM 7.5 MG CAPSULE PO PRN (21:38)
[2021-06-09] MEDS: LORAZEPAM 0.5 MG TABLET PO PRN (23:06)
--- NOTE | 2021-06-10 04:42 | NUR ---
CLOSING NOTES PATIENT IS ALERT AND ORIENTED X1. GETS OUT OF BED UNASSITED. BED ALARM SOUNDS OFF. PATIENT REQUESTED TO SIT IN VICTOR M CHAIR. RESTORIL AND ATIVAN WAS GIVEN WITH LITTLE EFFECT. INCONTINENT OF URINE. TOTAL SLEEPING TIME IS 2 HOURS.
[2021-06-10 08:00] VITALS: BP 115/54
[2021-06-10] MEDS: ENSURE ENLIVE 237 ML LIQUID (VANILLA) PO SCH ×2 (08:53→17:03)
[2021-06-10] MEDS: Z GUARD REMEDY 2 OZ OINT TP SCH (08:54)
[2021-06-10] MEDS: PANTOPRAZOLE 40 MG TABLET.DR PO SCH (08:59)
[2021-06-10] MEDS: FOLIC ACID 1 MG TABLET PO SCH (08:59)
[2021-06-10] MEDS: OLANZAPINE 5 MG TABLET PO SCH ×2 (08:59→17:03)
[2021-06-10] MEDS: ATORVASTATIN 40 MG TABLET PO SCH (08:59)
[2021-06-10] MEDS: ASPIRIN 81 MG TAB.CHEW PO SCH (08:59)
[2021-06-10] MEDS: DIVALPROEX SODIUM 125 MG CAP.SPRINK PO SCH ×2 (08:59→17:03)
[2021-06-10] MEDS: LOSARTAN POTASSIUM 50 MG TABLET PO SCH (09:00)
[2021-06-10] MEDS: ENOXAPARIN SODIUM 40 MG/0.4 ML DISP.SYRIN SQ SCH (09:01)
--- NOTE | 2021-06-10 13:10 | NUR ---
Family Contact SW left a voicemail for pt's spouse, Bereket, , to discuss the pt's tx and D/C plans.
[2021-06-10 16:00] VITALS: BP 115/67
--- NOTE | 2021-06-10 19:15 | NUR ---
GPS RN NOTES RECEIVED SITTING ON VICTOR M OUTSIDE,A/O X1,CONFUSED,DISORIENTED,WITH EPISODE OF AGITATION AT TIME,CRUSH MEDS,MED COMPLIANT,ASSIST WITH ADL'S.FALL RISK,FALL PRECAUTION OBSERVED,BED ALARM WHEN IN BED.REDNESS ON BUTTOCKS,MANAGE WITH REMEDY ORDERED.WILL CONTINUE TO MONITOR BEHAVIOR AND MANAGE ACCORDINGLY
[2021-06-10 20:00] VITALS: BP 109/52
[2021-06-10 21:40] VITALS: BP 109/52
[2021-06-10] MEDS: DONEPEZIL 5 MG TABLET PO SCH (21:50)
[2021-06-10] MEDS: MIRTAZAPINE 15 MG TABLET PO SCH (21:50)
[2021-06-10] MEDS: SENNOSIDES 8.6 MG TABLET PO SCH (21:50)
[2021-06-10] MEDS: TEMAZEPAM 7.5 MG CAPSULE PO PRN (21:51)
--- NOTE | 2021-06-10 21:51 | NUR ---
GPS RN NOTES STILL AWAKE,RESTORIL7.5MG PO GIVEN WITH APPLE SAUCE,TAKEN WELL
--- NOTE | 2021-06-10 22:00 | NUR ---
GPS RN NOTES PO MEDS ADMINISTERED,TAKEN WELL.NEGATIVE FOR ASPIRATION
[2021-06-11 08:00] VITALS: BP 136/75
[2021-06-11] MEDS: PANTOPRAZOLE 40 MG TABLET.DR PO SCH (09:01)
[2021-06-11] MEDS: OLANZAPINE 5 MG TABLET PO SCH ×2 (09:01→17:08)
[2021-06-11] MEDS: ATORVASTATIN 40 MG TABLET PO SCH (09:01)
[2021-06-11] MEDS: DIVALPROEX SODIUM 125 MG CAP.SPRINK PO SCH ×2 (09:01→17:08)
[2021-06-11] MEDS: FOLIC ACID 1 MG TABLET PO SCH (09:01)
[2021-06-11] MEDS: ASPIRIN 81 MG TAB.CHEW PO SCH (09:01)
[2021-06-11] MEDS: LOSARTAN POTASSIUM 50 MG TABLET PO SCH (09:01)
[2021-06-11] MEDS: ENOXAPARIN SODIUM 40 MG/0.4 ML DISP.SYRIN SQ SCH (09:02)
[2021-06-11] MEDS: ENSURE ENLIVE 237 ML LIQUID (VANILLA) PO SCH ×3 (09:04→17:09)
[2021-06-11] MEDS: Z GUARD REMEDY 2 OZ OINT TP SCH (09:05)
[2021-06-11 16:00] VITALS: BP 119/69
[2021-06-11 20:00] VITALS: BP 142/75
[2021-06-11] MEDS: MIRTAZAPINE 15 MG TABLET PO SCH (21:35)
[2021-06-11] MEDS: SENNOSIDES 8.6 MG TABLET PO SCH (21:35)
[2021-06-11] MEDS: DONEPEZIL 5 MG TABLET PO SCH (21:35)
[2021-06-11] MEDS: TEMAZEPAM 7.5 MG CAPSULE PO PRN (21:35)
[2021-06-12 08:00] VITALS: BP 126/66
--- NOTE | 2021-06-12 09:30 | NUR ---
D/C planning: GUERO called pt's spouse, Bereket, and notified him that pt. has been accepted to [facility] [[address] [place] [address]; ]. Bereket is agreeable to D/C plan and requested 11 am D/C. GUERO called [facility] and spoke with Serena CHACON to notify her of D/C plan 06/13/2021 11 AM and she is agreeable and just requesting Rapid COVID test result to be faxed to [phone]. GUERO notified nursing and also to arrange transportation for 11 am.
[2021-06-12] MEDS: FOLIC ACID 1 MG TABLET PO SCH (09:52)
[2021-06-12] MEDS: ATORVASTATIN 40 MG TABLET PO SCH (09:52)
[2021-06-12] MEDS: LOSARTAN POTASSIUM 50 MG TABLET PO SCH (09:52)
[2021-06-12] MEDS: OLANZAPINE 5 MG TABLET PO SCH ×2 (09:52→17:27)
[2021-06-12] MEDS: PANTOPRAZOLE 40 MG TABLET.DR PO SCH (09:52)
[2021-06-12] MEDS: DIVALPROEX SODIUM 125 MG CAP.SPRINK PO SCH ×2 (09:52→17:27)
[2021-06-12] MEDS: ASPIRIN 81 MG TAB.CHEW PO SCH (09:52)
[2021-06-12] MEDS: ENSURE ENLIVE 237 ML LIQUID (VANILLA) PO SCH ×3 (09:53→17:28)
[2021-06-12] MEDS: ENOXAPARIN SODIUM 40 MG/0.4 ML DISP.SYRIN SQ SCH (09:54)
[2021-06-12] MEDS: Z GUARD REMEDY 2 OZ OINT TP SCH (09:55)
--- NOTE | 2021-06-12 15:40 | NUR ---
D/C Plan: Pt. will be discharged to [facility] [[address], [place] [address]; ] ROOM: 14 on 06/13/2021 at 11 am. Pt. will be transferred via ambulance 11 am. Pt.s , Bereket Link was notified of D/C and is agreeable to plan. Currently, the pt. appears to be confused, forgetful and A&O X2. Pt. has Hx. of Dementia. Pt. is ambulating independently. Pt. will be under the care of a psychiatrist, Dr. Smith [[address] [facility], [address] [place] [address]; ] and casino cage supervisor, Antonio Ba [[address] [facility] [address] [place] [address]; . The choice of vendor form and multidisciplinary exit care form were done, printed, signed, and given to the patient. Fax Rapid Covid Test Result to : [phone] Arrange for ambulance transport 11 am Call Amish (RN Enterprise Engineer) for report: ]
[2021-06-12 16:00] VITALS: BP 100/61
--- NOTE | 2021-06-12 20:15 | NUR ---
RN NOTE: AT THE BEGINNING OF FLOORING GRADER, RECEIVED PATIENT RESTING IN BED, TRIED TO GET OUT OF HER BED UNASSISTED, ASSISTED PATIENT TO THE RESTROOM, NOTED WITH OPEN SKIN TO RIGHT & LEFT BUTTOCK WHILE PROVIDING PERINEAL CARE, REASSESSED WITH AM RN, PICTURE TAKEN, ASSISTED PATIENT BACK TO BED. PATIENT IS UNCOOPERATIVE & NON COMPLAINT WITH STAYING IN BED, ATTEMPTS TO GET OUT OF BED FREQUENTLY. CONFUSED, DISORGANIZED, EASILY AGITATED, UNSTEADY, HIGH FALL RISK. CHARGE NURSE, LAND SURVEYING PARTY CHIEF MD AND NURSING DIRECTOR VOICE NOTIFIED ABOUT PATIENT'S SKIN CONDITION, WILL KEEP SKIN CLEAN & DRY MUCH POSSIBLE. Z GUARD APPLIED FOLLOWED BY MEPILEX. WOUND CARE CONSULT ORDERED. WILL FOLLOW PROTOCOL.
--- NOTE | 2021-06-12 20:28 | NUR ---
RN NOTE COVID 19 ANTIGEN SWAB COLLECTED & DROPPED OFF AT THE LAB.
[2021-06-12 20:57] VITALS: BP 114/73
[2021-06-12] MEDS: ACETAMINOPHEN 325 MG TABLET PO PRN (21:18)
--- NOTE | 2021-06-12 21:19 | NUR ---
RN NOTE: PAIN PATIENT C/O GENERALIZED BACK PAIN, UNABLE TO SCALE DUE TO CONFUSION. PRN TYLENOL 650 MG PO ADMINISTERED. SNACK WAS GIVEN TO THE PATIENT & TOLERATED WELL. WILL CONTINUE TO MONITOR.
[2021-06-12] MEDS: MIRTAZAPINE 15 MG TABLET PO SCH (21:37)
[2021-06-12] MEDS: SENNOSIDES 8.6 MG TABLET PO SCH (21:37)
[2021-06-12] MEDS: DONEPEZIL 5 MG TABLET PO SCH (21:37)
[2021-06-12] MEDS: Z GUARD REMEDY 4 OZ OINT TP PRN (21:51)
[2021-06-12] MEDS: TEMAZEPAM 7.5 MG CAPSULE PO PRN (22:09)
--- NOTE | 2021-06-12 22:10 | NUR ---
RN NOTE: INSOMNIA PATIENT VERBALIZED THAT SHE IS UNABLE TO SLEEP, RESTLESS & REQUESTED TO TAKE SLEEPING MEDICINE. PRN RESTORIL 7.5 MG 1 CAP PO ADMINISTERED. SNACK & PO FLUIDS OFFERED & TOLERATED WELL. WILL CONTINUE TO MONITOR.
[2021-06-13] MEDS: ACETAMINOPHEN 325 MG TABLET PO PRN (06:34)
--- NOTE | 2021-06-13 06:35 | NUR ---
RN NOTE: PAIN PATIENT C/O LOWER BACK PAIN, UNABLE TO SCALE DUE TO CONFUSION. PRN TYLENOL 650 MG PO ADMINISTERED. WILL CONTINUE TO MONITOR.
[2021-06-13 08:00] VITALS: BP 148/81
[2021-06-13] MEDS: ATORVASTATIN 40 MG TABLET PO SCH (09:06)
[2021-06-13] MEDS: DIVALPROEX SODIUM 125 MG CAP.SPRINK PO SCH (09:06)
[2021-06-13] MEDS: OLANZAPINE 5 MG TABLET PO SCH (09:06)
[2021-06-13] MEDS: FOLIC ACID 1 MG TABLET PO SCH (09:06)
[2021-06-13] MEDS: PANTOPRAZOLE 40 MG TABLET.DR PO SCH (09:06)
[2021-06-13] MEDS: ASPIRIN 81 MG TAB.CHEW PO SCH (09:06)
[2021-06-13] MEDS: ENOXAPARIN SODIUM 40 MG/0.4 ML DISP.SYRIN SQ SCH (09:09)
[2021-06-13] MEDS: ENSURE ENLIVE 237 ML LIQUID (VANILLA) PO SCH ×2 (09:10→12:07)
[2021-06-13] MEDS: Z GUARD REMEDY 2 OZ OINT TP SCH (09:11)
[2021-06-13 09:12] VITALS: BP 148/81
[2021-06-13] MEDS: LOSARTAN POTASSIUM 50 MG TABLET PO SCH (09:12)
--- NOTE | 2021-06-13 14:04 | NUR ---
RN-DISCHARGE NOTES PATIENT HAD A DISCHARGE ORDER FROM DR. WOODY( PSYCHIATRIST) AND DR. DIAZ ( AGRONOMY LOCATION MANAGER) MADE AWARE OF THE DISCHARGE WITH ORDERS. PATIENT WAS DISCHARGE TO [facility] .PATIENT LEFT THE UNIT IN STABLE CONDITION A/O X1 AMBULATORY WITH ASSIST .PATIENT DID NOT VERBALIZE SI/HI,DENIES VISUAL/AUDITORY HALLUCINATIONS AT THE TIME OF DISCHARGE. ALL BELONGINGS WAS GIVEN BACK TO THE PATIENT INCLUDING X1 YELLOW NECKLACE WITH CROSS AND X1 YELLOW RING STONES ALL WAS WITH THE PATIENT.PATIENT'S THEODORE PERES [phone] WAS MADE AWARE BY THE JANITOR CUSTODIAN OF THE DISCHARGE.PATIENT WAS LEAD DATA ENTRY OPERATOR BY AMBULANCE VIA GURNEY WITH TWO STAFF ASSIST.REPORT WAS GIVEN TO AUTOMOTIVE MAINTENANCE TECHNICIAN (JULIANE).
== END 2021-06-13 14:00 | DRG 885 ==
LOC: GPS 19:41
PROVIDERS: ADMIT Psychiatry & Neurology Psychiatry; ATTEND Internal Medicine
DX: F29 Unspecified psychosis not due to a substance or known physiological condition (principal); F41.9 Anxiety disorder, unspecified; F03.90 Unspecified dementia, unspecified severity, without behavioral disturbance, psychotic disturbance, mood disturbance, and anxiety; F32.9 Major depressive disorder, single episode, unspecified; I10 Essential (primary) hypertension; Z79.82 Long term (current) use of aspirin; Z79.899 Other long term (current) drug therapy; Z79.01 Long term (current) use of anticoagulants; Z73.6 Limitation of activities due to disability; G89.29 Other chronic pain; K21.9 Gastro-esophageal reflux disease without esophagitis; R79.89 Other specified abnormal findings of blood chemistry; M79.18 Myalgia, other site
CPT/HCPCS: 36415; 80048-TC; 80053-TC; 80061-TC; 81001; 82962-TC; 83735-TC; 84100-TC; 84443-TC; 85025-TC; 87040-TC; 87081-TC; 87086-TC; 87186-TC; 97116-TC; 97530-TC; J1650